=== PATIENT | male | born 1965 | race Caucasian/White ===

== ENCOUNTER → 2017-04-29 | Outpatient (CLI) | payer MEDICARE ==
[~2017-04-29] MED LIST: ALPRAZOLAM XR2 MG PO; CITALOPRAM20 MG PO; DIGOXIN0.25 MG PO; EFFIENT10 M1; FUROSEMIDE40 MG PO; KEFLEX 500MG.500 MG PO; LISINOPRIL 5MG T5 MG PO; LORTAB 500 MG-11 TAB PO; MEDROL 4MG. DOSE4 MG PO; METOPROLOL SUCC50 M1 PO; PERCOCET 10 MG1 EACH PO; PERCOCET 325 MG1 TA2 PO; POTASSIUM CHLO20 ME2 PO; SIMVASTATIN40 MG PO; TESSALON PERLE100 MG PO; TIZANIDINE2 MG PO
--- NOTE | 2017-04-29 17:26 | RADIOLOGY REPORT PS360 ---
CT SINUS (MAX-FACIAL W/O CONT) CLINICAL INDICATION: ACUTE MAXILLARY SINUSITIS ORDERING PHYSICIAN: Andreas Finney MD PATIENT AGE: 51 years COMPARISON: None TECHNIQUE:Axial, sagittal, and coronal images are generated and reviewed without contrast FINDINGS: There is mild mucosal thickening of the ethmoid sinuses bilaterally. Mild mucosal thickening of the maxillary sinuses on both sides. A 9 mm retention cyst is present in the superior aspect of the left maxillary sinus. An 8 mm retention cyst present in the infra aspect of the left maxillary sinus. No sinus air-fluid levels are evident. There is mild narrowing of the ostiomeatal complexes. There is mild leftward nasal septal deviation. The sphenoid sinus is unremarkable. There is some sclerosis of the mastoid air cells bilaterally greater on the right side. The orbits have an unremarkable appearance. The TMJs have an unremarkable appearance. IMPRESSION: 1. Mild ethmoid and maxillary sinus inflammatory change. No air-fluid levels. 2. Mild leftward nasal septal deviation 3. 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
== END ==
LOC: RAD 14:23
DX: J32.0 Chronic maxillary sinusitis (principal); J01.01 Acute recurrent maxillary sinusitis; J30.9 Allergic rhinitis, unspecified